=== PATIENT | male | born 1985 | race Two or more races ===

== ENCOUNTER 2021-01-10 08:06 | Outpatient (CLI) | payer OTHER | END 2021-01-10 08:18 | disposition home or self-care (01) | LOC: LAB 08:06 | PROVIDERS: ATTEND Urology | DX: N20.1 Calculus of ureter (principal) ==

== ENCOUNTER 2021-01-10 08:54 | Outpatient (CLI) | payer OTHER | END 2021-01-10 09:09 | disposition home or self-care (01) | LOC: TOM 08:54 | PROVIDERS: ATTEND Urology | DX: N20.1 Calculus of ureter (principal) ==